=== PATIENT | male | born 1955 | race African-American/Black ===

== ENCOUNTER 2018-01-14 13:13 | Inpatient (IN) | payer MEDICAID ==
[~2018-01-14] VITALS: Ht 172.7 cm; Wt 68.0 kg
[~2018-01-14 13:13] MED LIST: HYDR-519 PO
[2018-01-14] MEDS ORDERED: SODIUM CHLORIDE 0.9% 1,000 ML IV ONE (14:29)
[2018-01-14] MEDS ORDERED: IPRATROPIUM/ALBUTEROL 0.5-3(2.5)MG/3ML NEB HHN ONE (14:30)
[2018-01-14 14:45] LABS: BASOPHILS % 0.6 % (0.0-2.0); EOSINOPHILS % 0.7 % (0.0-5.0); HEMATOCRIT. 46.9 % (42.0-52.0); HEMOGLOBIN. 15.7 g/dL (14.0-18.0); LYMPHOCYTES % 25.7 % (20.0-50.0); MEAN CORPUSCULAR HEMOGLOBIN 31.7 pg (28.0-32.0); MEAN CORPUSCULAR VOLUME 94.9 fL (80.0-94.0); MEAN PLATELET VOLUME 9.2 fl (7.4-10.4); MONOCYTES % 13.3 % (2.0-8.0); NEUTROPHILS % 59.7 % (40.0-76.0); PLATELET 212 x1000/uL (130-400); RED BLOOD CELL COUNT 4.94 mill/uL (4.7-6.1); RED CELL DISTRIBUTION WIDTH 12.9 % (11.6-14.6)
[2018-01-14 14:49] LABS: CHLORIDE 106 mEq/L (98-107)
[2018-01-14 14:53] LABS: ETHANOL BLOOD < 10 mg/dL
[2018-01-14 14:55] LABS: INR 1.1
[2018-01-14 16:42] LABS: CLARITY URINE CLEAR (CLEAR); COLOR URINE DARK YELLOW (YELLOW); KETONES URINE NEGATIVE (NEGATIVE); LEUKOCYTE ESTERASE URINE TRACE (NEGATIVE); NITRITE URINE NEGATIVE (NEGATIVE); OCCULT BLOOD URINE NEGATIVE (NEGATIVE); PROTEIN URINE NEGATIVE (NEGATIVE); SPECIFIC GRAVITY URINE 1.023 (1.005-1.030)
[2018-01-14] MEDS ORDERED: KETOROLAC 30MG/ML VIAL IV ONE (18:00)
[2018-01-14] MEDS ORDERED: LEVOFLOXACIN 750MG PREMIX 150 ML IV ONE (18:00)
[2018-01-14] MEDS ORDERED: IPRATROPIUM/ALBUTEROL 0.5-3(2.5)MG/3ML NEB HHN PRN (19:00)
[2018-01-14 19:59] VITALS: BP 129/78
[2018-01-14 20:00] VITALS: BP 129/78
[2018-01-14] MEDS: HYDROCODONE/ACETAMINOPHEN 10/325MG TABLET PO PRN (21:35)
[2018-01-15] VITALS: BP 105/64
[2018-01-15 04:00] VITALS: BP 104/62
[2018-01-15] MEDS ORDERED: CEFTRIAXONE 1 G PREMIX 50 ML IV SCH ×2 (10:45→11:30)
[2018-01-15] MEDS: HYDROCODONE/ACETAMINOPHEN 10/325MG TABLET PO PRN (12:18)
[2018-01-15 13:02] LABS: CREATINE KINASE 484 IU/L (39-308); CREATINE KINASE MB FRACTION 5.3 ng/mL (0.5-3.6)
[2018-01-15 16:06] VITALS: BP 125/75
== END 2018-01-15 16:45 | disposition home or self-care (01) | DRG 463 ==
LOC: ENRESERV 15:18 → ER 16:24 → 5WST 17:31 → EDBEDREQ 17:32 → EDBEDREQTM 17:32
PROVIDERS: ADMIT Internal Medicine; ATTEND Internal Medicine
DX: N39.0 Urinary tract infection, site not specified (principal); G71.0 Muscular dystrophy; E78.5 Hyperlipidemia, unspecified; I10 Essential (primary) hypertension; Z85.118 Personal history of other malignant neoplasm of bronchus and lung; Z85.46 Personal history of malignant neoplasm of prostate
CPT/HCPCS: 36415; 71045; 78582; 80053; 81003; 82550; 82553; 83605; 83690; 83880; 84484; 85025; 85610; 87040; 87086; 93005; 93306; 93880; 96360; 96361; 97162; 99285; A9558; G0482; J0696; J7030; J7050

== ENCOUNTER 2019-02-23 18:43 | Inpatient (IN) | payer MEDICAID ==
[~2019-02-23] VITALS: Ht 167.6 cm; Wt 67.1 kg
[2019-02-23] MEDS ORDERED: ASPIRIN 81MG TABLET PO ONE (21:15)
[2019-02-23 21:41] LABS: EOSINOPHILS % 2.2 % (0.0-5.0); HEMATOCRIT. 44.1 % (42.0-52.0); HEMOGLOBIN. 14.7 g/dL (14.0-18.0); LYMPHOCYTES % 54.5 % (20.0-50.0); MEAN CORPUSCULAR HEMOGLOBIN 32.7 pg (28.0-32.0); MEAN CORPUSCULAR VOLUME 97.8 fL (80.0-94.0); MEAN PLATELET VOLUME 8.4 fl (7.4-10.4); MONOCYTES % 9.7 % (2.0-8.0); NEUTROPHILS % 32.6 % (40.0-76.0); PLATELET 174 x1000/uL (130-400); RED CELL DISTRIBUTION WIDTH 13.3 % (11.6-14.6)
[2019-02-23 21:46] LABS: CHLORIDE 112 mEq/L (98-107)
[2019-02-24] MEDS ORDERED: IOHEXOL-350 100 ML BOTTLE ONE (00:42)
[2019-02-24 02:50] VITALS: BP 131/84
[2019-02-24 03:00] VITALS: BP 131/84
[2019-02-24] MEDS ORDERED: HYDROCODONE/ACETAMINOPHEN 5/325MG TABLET PO PRN (05:15)
[2019-02-24 08:00] VITALS: BP 135/70
[2019-02-24] MEDS ORDERED: SODIUM POLYSTYRENE SULFONATE 15 G/60 ML BOT PO NR (09:00)
[2019-02-24 09:21] LABS: T4 FREE 1.13 ng/dL (0.76-1.46)
[2019-02-24] MEDS: ENOXAPARIN 40MG/0.4ML SYR SUBCUT SCH (09:28)
[2019-02-24] MEDS: ASPIRIN 81MG TABLET PO SCH (09:28)
[2019-02-24 12:00] VITALS: BP 128/60
[2019-02-24 16:00] VITALS: BP 137/66
[2019-02-24 16:31] LABS: CREATINE KINASE MB FRACTION 7.7 ng/mL (0.5-3.6)
[2019-02-24 20:00] VITALS: BP 110/66
[2019-02-25] VITALS: BP 100/62
[2019-02-25 04:00] VITALS: BP 115/65
[2019-02-25 08:00] VITALS: BP 123/68
[2019-02-25] MEDS: ASPIRIN 81MG TABLET PO SCH (08:43)
[2019-02-25] MEDS: ENOXAPARIN 40MG/0.4ML SYR SUBCUT SCH (08:43)
[2019-02-25 09:39] LABS: BASOPHILS % 0.6 % (0.0-2.0); EOSINOPHILS % 1.9 % (0.0-5.0); HEMATOCRIT. 48.6 % (42.0-52.0); HEMOGLOBIN. 15.9 g/dL (14.0-18.0); LYMPHOCYTES % 47.6 % (20.0-50.0); MEAN CORPUSCULAR VOLUME 97.4 fL (80.0-94.0); MEAN PLATELET VOLUME 8.8 fl (7.4-10.4); MONOCYTES % 9.9 % (2.0-8.0); PLATELET 197 x1000/uL (130-400); RED BLOOD CELL COUNT 4.98 mill/uL (4.7-6.1); RED CELL DISTRIBUTION WIDTH 13.5 % (11.6-14.6)
[2019-02-25] MEDS ORDERED: SODIUM CHLORIDE 0.45% 1,000 ML IV SCH (09:45)
[2019-02-25 09:58] LABS: CHLORIDE 109 mEq/L (98-107)
[2019-02-25 10:07] LABS: CREATINE KINASE 490 IU/L (39-308)
[2019-02-25 11:35] VITALS: BP 146/75
== END 2019-02-25 12:15 | disposition home or self-care (01) | DRG 194 ==
LOC: ER 19:21 → 5WST 02-24 00:10 → ENRESERV 02-24 02:07
PROVIDERS: ADMIT Internal Medicine; ATTEND Internal Medicine
DX: I11.0 Hypertensive heart disease with heart failure (principal); E87.5 Hyperkalemia; M62.82 Rhabdomyolysis; R07.9 Chest pain, unspecified; I25.10 Atherosclerotic heart disease of native coronary artery without angina pectoris; I50.9 Heart failure, unspecified; E03.9 Hypothyroidism, unspecified; K59.00 Constipation, unspecified; Z85.118 Personal history of other malignant neoplasm of bronchus and lung; Z85.46 Personal history of malignant neoplasm of prostate; Z86.711 Personal history of pulmonary embolism; Z79.899 Other long term (current) drug therapy
CPT/HCPCS: 36415; 71275; 80048; 80061; 82550; 82553; 83036; 83880; 84439; 84443; 84484; 85379; 93005; 93306; 93970; 99285; J1650; Q9967